=== PATIENT | female | born 1940 | race Caucasian/White ===

== ENCOUNTER 2018-09-02 02:55 | Emergency (ER) | payer OTHER ==
[~2018-09-02] VITALS: Ht 149.9 cm; Wt 48.5 kg
[~2018-09-02 02:55] MED LIST: EZET1TAB24 PO; LISI-600 PO
[2018-09-02 02:56] VITALS: BP_SYST 114
[2018-09-02] MEDS ORDERED: DIPHENHYDRAMINE HCL 50 MG CAPSULE PO ONE (03:30)
[2018-09-02] MEDS ORDERED: PREDNISONE 20 MG TABLET PO ONE (03:30)
[2018-09-02 03:44] VITALS: BP_SYST 114
== END 2018-09-02 03:46 | disposition home or self-care (01) ==
LOC: SED 02:55
DX: N39.0 Urinary tract infection, site not specified (principal); T37.0X5A Adverse effect of sulfonamides, initial encounter; I10 Essential (primary) hypertension; Z88.8 Allergy status to other drugs, medicaments and biological substances; Y92.89 Other specified places as the place of occurrence of the external cause
CPT/HCPCS: 99283; J7512; Q0163

== ENCOUNTER 2020-03-08 23:10 | Emergency (ER) | payer OTHER ==
[~2020-03-08] VITALS: Ht 149.9 cm; Wt 48.1 kg
[2020-03-08 23:10] VITALS: BP_SYST 143
[2020-03-08] MEDS ORDERED: methylPREDNISolone SOD SUCC/PF 62.5 MG/ML VIAL IVP ONE (23:45)
[2020-03-08] MEDS ORDERED: DIPHENHYDRAMINE INJ 50 MG/ML VIAL IVP ONE (23:45)
[2020-03-09 02:00] VITALS: BP_SYST 140
== END 2020-03-09 02:00 | disposition home or self-care (01) ==
LOC: SED 23:10
DX: T78.3XXA Angioneurotic edema, initial encounter (principal); I10 Essential (primary) hypertension
CPT/HCPCS: 96374; 96375; 99284; J1200; J2930

== ENCOUNTER 2022-01-28 09:53 | Emergency (ER) | payer OTHER ==
[~2022-01-28] VITALS: Ht 149.9 cm; Wt 49.9 kg
[~2022-01-28 09:53] MED LIST changes: -LISI-600 PO; +LISI20TA30 PO
[2022-01-28 11:03] VITALS: BP_SYST 132
--- NOTE | 2022-01-28 19:58 | NUR ---
Patient left without being seen.
== END 2022-01-28 19:58 | disposition left against medical advice (07) ==
LOC: SED 09:53
DX: M25.561 Pain in right knee (principal); Z53.21 Procedure and treatment not carried out due to patient leaving prior to being seen by health care provider